=== PATIENT | female | born 2005 | race Hispanic/Latino ===

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

== ENCOUNTER 2025-02-07 11:36 | Emergency (ER) | payer BC, MEDICAID ==
[~2025-02-07] VITALS: Ht 162.6 cm; Wt 56.7 kg
[~2025-02-07 11:36] MED LIST: DOCU-116 PO; IBUP-2077 PO; PREN-154 PO
--- NOTE | 2025-02-07 11:57 | NUR ---
PENDING TEST RESULTS FOR CT EXAM.
[2025-02-07] MEDS: ondanSETRON 4MG INJ IVP ONE (12:41)
[2025-02-07] MEDS: PANTOPrazole 40 MG/VIAL IVP ONE (12:41)
[2025-02-07] MEDS: LACTATED RINGERS 1000ML 1,000 ML IV ONE (12:42)
[2025-02-07 13:09] LABS: BASOPHILS # (AUTO) 0.03 K/uL (0.00-0.20); BASOPHILS % (AUTO) 0.3 % (0.0-5.0); EOSINOPHILS # (AUTO) 0.03 K/uL (0.00-0.70); EOSINOPHILS % (AUTO) 0.3 % (0.0-8.0); HEMATOCRIT 45.8 % (36-48); IMMATURE GRANULOCYTE ABSOLUTE 0.03 K/uL (0-1); LYMPHOCYTES # (AUTO) 1.9 K/uL (1.0-4.8); LYMPHOCYTES % (AUTO) 17.6 % (21.0-51.0); MEAN CORPUSCULAR HEMOGLOBIN 29.8 pg (27.0-33.0); MEAN CORPUSCULAR HGB CONC 32.8 g/dL (32.0-36.0); MEAN CORPUSCULAR VOLUME 90.9 fL (80-100); MONOCYTES # (AUTO) 0.6 K/uL (0.1-1.0); MONOCYTES % (AUTO) 5.6 % (3.0-13.0); NEUTROPHILS # (AUTO) 8.2 K/uL (1.8-7.7); NEUTROPHILS % (AUTO) 75.9 % (40.0-77.0); PLATELET COUNT (AUTO) 373 K/uL (130-400); RED BLOOD CELL COUNT(AUTO) 5.04 MIL/uL (4.00-5.50); RED CELL DISTRIBUTION WIDTH 13.2 % (11.0-15.5); WHITE BLOOD COUNT (AUTO) 10.8 K/uL (4.8-10.8)
[2025-02-07 13:15] LABS: CREATININE 0.4 mg/dL (0.5-1.0); POTASSIUM 3.8 mmol/L (3.5-5.1)
[2025-02-07 13:34] LABS: ALBUMIN 3.8 g/dL (3.5-5.0); BILIRUBIN,TOTAL 1.2 mg/dL (0.2-1.0); TOTAL PROTEIN, SERUM 7.9 g/dL (6.0-8.3)
[2025-02-07 13:58] LABS: APPEARANCE,URINE CLEAR (CLEAR); BILIRUBIN,URINE NEGATIVE (NEGATIVE); COLOR,URINE YELLOW (YELLOW); GLUCOSE, URINE (UA) NEGATIVE (NEGATIVE); KETONES,URINE NEGATIVE (NEGATIVE); LEUKOCYTE ESTERASE ,URINE NEGATIVE Leu/uL (NEGATIVE); NITRATE,URINE NEGATIVE (NEGATIVE); OCCULT BLOOD,URINE NEGATIVE (NEGATIVE); PH,URINE 5.5 (5.0-8.0); PROTEIN,URINE 20 mg/dL (NEGATIVE); UROBILINOGEN,URINE 0.2 mg/dL (0.2-1.0)
[2025-02-07 14:00] LABS: ADD UA MICROSCOPIC YES
[2025-02-07 14:02] LABS: HCG,QUALITATIVE URINE NEGATIVE (NEGATIVE)
[2025-02-07 14:07] LABS: MUCUS,URINE RARE LPF (None Seen); RBC,URINE 0-1 /HPF (0-1); SQUAMOUS EPITHELIAL CELL,UR RARE /HPF (0-2); WBC,URINE 0-1 /HPF (0-1)
--- NOTE | 2025-02-07 14:17 | HMCIMG ---
Exam Type: CT ABDOMEN/PELVIS W/O CONTRAST Clinical Information: ABD PAIN Comparison: None CT Dose Index (CTDI): 10.20 mGy Dose Length Product (DLP): 530.00 total mGy-cm PROTOCOL: Routine noncontrast helical scanning of the abdomen and pelvis was performed at 5mm collimation. Findings: No evidence of nephro or ureterolithiasis is found. No hydronephrosis or ureteral dilatation is seen. The lung bases are clear. The stomach is unremarkable except for the presence of a percutaneous gastrostomy catheter. It shows no wall thickening. No gross ulceration is seen. It is not overly distended. There are no surrounding inflammatory changes. No wall lesions are identified to suggest cancer. The spleen is unremarkable. It is not enlarged. The pancreas shows normal anatomy. It is not fatty replaced. It shows no lesions. The pancreatic duct is not dilated. The gallbladder is unremarkable. It shows no cholelithiasis. The gallbladder wall is normal in thickness. There is no pericholecystic fluid. The is no acute or chronic inflammation noted. The adrenal glands are unremarkable. There is no enlargement. No lesions are noted. The liver is unremarkable. It shows no focal masses. The appendix is unremarkable. It shows no evidence of inflammation. No appendicolith is seen. The small bowel is unremarkable. There is no evidence of dilatation to suggest obstruction. No evidence of adynamic ileus is seen. There is no small bowel wall thickening to suggest enteritis. Abundant fecal matter is noted throughout the colon consistent with constipation. The urinary bladder is unremarkable. There is no wall thickening to suggest tumor or inflammation. There are no intraluminal calculi. There are no diverticula. There is no evidence of chronic bladder outlet obstruction. There is no evidence of urinary bladder distention to suggest urinary retention. The other pelvic structures are unremarkable. The bony and vascular structures are unremarkable for the patient's age. IMPRESSION: Constipation This study was performed using dose reduction techniques to include automated exposure control and/or adjustment of the mA and/or kV according to patient size.
--- NOTE | 2025-02-07 14:22 | HMCIMG ---
Exam Type: CHEST 1VW Clinical Information: FEVER Comparison: None Findings: The lungs are clear of infiltrates. The heart is normal in size. The bony and soft tissue structures of the chest are unremarkable. Impression: Clear lungs.
--- NOTE | 2025-02-07 14:37 | ERN ---
General Chief Complaint: Nausea,Vomiting,Diarrhea Stated Complaint: N/V W/PEG Time Seen by MD: 11:39 Source: patient, family, EMS History of Present Illness Initial Comments PATIENT IS A 19-YEAR-OLD FEMALE COMING IN TO BE EVALUATED FOR NAUSEA AND VOMIT ING DIARRHEA. PER HAS NOT REMEMBER PATIENT HAS A EXTENSIVE HISTORY OF REPEATED ABDOMINAL PAIN. PER FAMILY MEMBERS PATIENT HAS A POSSIBLE FLUID COLLECTION IN HER ABDOMEN. Allergies: Coded Allergies: No Allergy Information Available (Verified Allergy, Unknown, 08/25/22) NO KNOWN DRUG ALLERGIES Home Meds Reported Medications Docusate Sodium (Colace) 100 Mg Capsule, 100 MG PO BID, #60 CAP 08/25/22 Ibuprofen (Ibuprofen 800 mg Tab) 800 Mg Tab, 800 MG PO Q8H PRN for PAIN LEVEL 4 TO 6, #60 TAB 08/25/22 Vits #93/Iron Fum/FA ( Formula Tablet) 1 Each Tablet, 1 EACH PO DAILY, TAB 08/24/22 Past Medical History Past Medical History: Other Medical History Other: ANOXIC BRAIN INJURY, OVERDOSE, SMALL COCCYX ULCER PER MOM Past Surgical History: Other Surgical History Other: TRACH NOW CLOSED, PEG TUBE ROS Dictation UNABLE TO GET A COMPLETE ROS SECONDARY TO TBI Physical Exam Physical Exam Dictation VITAL SIGNS: REVIEWED. GENERAL APPEARANCE: ALERT, ORIENTED X3, NO ACUTE DISTRESS, OBESE. HEAD AND FACE: NON-TRAUMATIC. EYES: PERRL, PINK CONJUNCTIVAS, EYELID NO TRAUMA, ANTERIOR CHAMBER CLEAR. EARS: PINNAS INTACT AND NO SIGNS OF TRAUMA OR ERYTHEMA. EAR CANALS CLEAR AND NO DISCHARGE. TMS NO ERYTHEMA. NOSE: NO DISCHARGE, NO BLEEDING. OROPHARYNX: MOUTH NORMAL, TEETH NO CARIES, TONGUE PINK. PHARYNX CLEAR, NO ERYTHEMA. TONSILS NO EXUDATES, NO ABSCESSES NOTED. MUCOUS MEMBRANE MOIST. NECK: SUPPLE, NON-TENDER, NO THYROMEGALY, NO MASSES, NO JVD, NO BRUITS. BREAST: DEFERRED. CHEST: NO TENDERNESS, NO CREPITUS, NO PARADOXICAL MOVEMENT, NO RETRACTIONS. LUNGS: CLEAR, WELL-VENTILATED, SYMMETRIC, NO RALES, NO WHEEZING, NO RHONCHI, NO STRIDOR, GOOD BREATH SOUNDS BILATERALLY. HEART: REGULAR RATE, REGULAR RHYTHM, NO MURMUR, NO GALLOPS. VASCULAR: NO PERIPHERAL EDEMA. ABDOMEN: SOFT, POSITIVE BOWEL SOUNDS, NONDISTENDED, NO GUARDING, NONTENDER, NO REBOUND, NO MASSES NO HEPATOMEGALY, NO SPLENOMEGALY, NO BROWER'S SIGN, NO HERNIAS. RECTAL: DEFERRED. GENITAL: DEFERRED. NEUROLOGICAL: NORMAL SPEECH, GROSS MOTOR FUNCTION INTACT, GROSS SENSORY FUNCTION INTACT. MUSCULOSKELETAL: NECK NONTENDER, FULL RANGE OF MOTION, BACK NONTENDER, FULL RANGE OF MOTION. EXTREMITIES: NONTENDER, FULL RANGE OF MOTION. SKIN: COLOR PINK, DRY, NO TURGOR, NO RASH, NO LACERATIONS, NO ABRASIONS, NO CONTUSIONS. LYMPHATICS: DEFERRED. Results Laboratory and Microbiology Lab and Micro Result Laboratory Tests Test 02/07/25 12:51 02/07/25 13:50 White Blood Count 10.8 K/uL (4.8-10.8) Red Blood Count 5.04 MIL/uL (4.00-5.50) Hemoglobin 15.0 g/dL (12.0-16.0) Hematocrit 45.8 % (36-48) Mean Corpuscular Volume 90.9 fL (80-100) Mean Corpuscular Hemoglobin 29.8 pg (27.0-33.0) Mean Corpuscular Hemoglobin Concent 32.8 g/dL (32.0-36.0) Red Cell Distribution Width 13.2 % (11.0-15.5) Platelet Count 373 K/uL (130-400) Mean Platelet Volume 11.2 fL (7.5-10.5) H Immature Granulocyte % (Auto) 0.3 % (0-1) Neutrophils (%) (Auto) 75.9 % (40.0-77.0) Lymphocytes (%) (Auto) 17.6 % (21.0-51.0) L Monocytes (%) (Auto) 5.6 % (3.0-13.0) Eosinophils (%) (Auto) 0.3 % (0.0-8.0) Basophils (%) (Auto) 0.3 % (0.0-5.0) Neutrophils # (Auto) 8.2 K/uL (1.8-7.7) H Lymphocytes # (Auto) 1.9 K/uL (1.0-4.8) Monocytes # (Auto) 0.6 K/uL (0.1-1.0) Eosinophils # (Auto) 0.03 K/uL (0.00-0.70) Basophils # (Auto) 0.03 K/uL (0.00-0.20) Absolute Immature Granulocyte (auto 0.03 K/uL (0-1) Nucleated Red Blood Cells 0.0 % (0.0-0.19) Sodium Level 139 mmol/L (136-145) Potassium Level 3.8 mmol/L (3.5-5.1) Chloride Level 100 mmol/L (101-111) L Carbon Dioxide Level 30 mmol/L (21-32) Blood Urea Nitrogen 11 mg/dL (7-18) Creatinine 0.4 mg/dL (0.5-1.0) L Glomerular Filtration Rate Calc 146 mL/min (>90) Random Glucose 104 mg/dL (70-105) Total Calcium 9.8 mg/dL (8.5-10.1) Total Bilirubin 1.2 mg/dL (0.2-1.0) H Aspartate Amino Transf (AST/SGOT) 20 U/L (10-37) Alanine Aminotransferase (ALT/SGPT) 24 U/L (12-78) Alkaline Phosphatase 142 U/L (50-136) H Total Creatine Kinase 112 U/L (21-232) Troponin I High Sensitivity 6 ng/L (4-50) Total Protein 7.9 g/dL (6.0-8.3) Albumin 3.8 g/dL (3.5-5.0) Lipase 27 U/L (16-77) Human Chorionic Gonadotropin, Quant 0 mIU/mL (0-5) Urine Color YELLOW (YELLOW) Urine Appearance CLEAR (CLEAR) Urine pH 5.5 (5.0-8.0) Urine Specific [place] 1.030 (1.001-1.031) Urine Protein 20 mg/dL (NEGATIVE) H Urine Glucose (UA) NEGATIVE mg/dL (NEGATIVE) Urine Ketones NEGATIVE mg/dL (NEGATIVE) Urine Occult Blood NEGATIVE (NEGATIVE) Urine Nitrate NEGATIVE (NEGATIVE) Urine Bilirubin NEGATIVE mg/dL (NEGATIVE) Urine Urobilinogen 0.2 mg/dL (0.2-1.0) Urine Leukocyte Esterase NEGATIVE Poppy/uL Urine RBC 0-1 /HPF (0-1) Urine WBC 0-1 /HPF (0-1) Urine Squamous Epithelial Cells RARE /HPF (0-2) Urine Bacteria None /HPF (None Seen) Urine HCG, Qualitative NEGATIVE (NEGATIVE) Stool Occult Blood NEGATIVE (NEGATIVE) Labs Reviewed?: Yes MDM MDM: DIFFERENTIAL DIAGNOSIS: CONSTIPATION COMING UTI, RATIONALE: TESTS CONSIDERED AND ORDERED SECONDARY TO SHARED DECISION MAKING INCLUDE: PREVIOUS OUTSIDE RECORDS REVIEWED: OLD ER VISITS. PATIENT IS A 19-YEAR-OLD FEMALE COMING IN TO BE EVALUATED FOR ABDOMINAL DISCOMFORT. CT DISCLOSE CONSTIPATION. I RELATED MESSAGE TO HAND QUILTER PATIENT HAS A HISTORY OF TBI AND LIMITED COMPREHENSION. ED Course Orders Procedure Category Date Status Time Cbc With Differential LAB 02/07/25 Complete 11:42 Comprehensive LAB 02/07/25 Complete Metabolic Panel 11:42 Troponin I High LAB 02/07/25 Complete Sensitivity 11:42 Hcg,Quantitative LAB 02/07/25 Complete 11:42 ,Urine Test LAB 02/07/25 Complete 11:42 Urinalysis Profile LAB 02/07/25 Complete 11:42 Occult Blood Stool LAB 02/07/25 Complete Single Only 11:42 Lactated Ringers PHA 02/07/25 Complete 1000ml (Lactated 12:00 Ondansetron 4mg Inj PHA 02/07/25 Complete (Zofran 4mg Inj) 12:00 Pantoprazole 40mg Inj PHA 02/07/25 Complete (Protonix 40mg Inj 12:00 Creatine Kinase, Total LAB 02/07/25 Complete 11:42 Ct Abdomen/Pelvis W/O CT 02/07/25 Resulted Contrast 11:42 Chest 1vw RAD 02/07/25 Resulted 11:42 Lipase LAB 02/07/25 Complete 11:42 Current Medications Medications (Trade) Dose Ordered Sig/Marbin Route PRN Reason Start Time Stop Time Status Last Admin Dose Admin Lactated Ringer's 1,000 ml @ 0 mls/hr ONCE ONCE IV 02/07/25 12:00 02/07/25 12:01 DC 02/07/25 12:42 Ondansetron HCl (zoFRAN 4MG INJ) 4 mg ONCE ONCE IVP 02/07/25 12:00 02/07/25 12:01 DC 02/07/25 12:41 Pantoprazole Sodium (PROTonix 40MG INJ) 40 mg ONCE ONCE IVP 02/07/25 12:00 02/07/25 12:01 DC 02/07/25 12:41 Vital Signs Date Time Temp Pulse Resp B/P (MAP) Pulse Ox O2 Delivery O2 Flow Rate FiO2 02/07/25 14:12 98.1 80 20 126/94 98 Room Air* 0 21 02/07/25 12:50 99.0 98 22 130/80 98 Room Air* 0 02/07/25 11:50 99.3 100 22 130/80 98 Room Air* 0 02/07/25 11:40 98.6 103 18 117/74 98 Room Air DX & DISP Disposition: Discharge Departure Impression: Primary Impression: Constipation Additional Impression: History of traumatic brain injury Condition: Stable Additional Instructions: FOLLOW-UP WITH PRIMARY CARE PROVIDER IN 1 TO 2 DAYS. TAKE MEDICATIONS DIRECTED HERE IN THE EMERGENCY ROOM. OKAY TO CONTINUE HOME MEDICATIONS UNLESS OTHERWISE DISCUSSED DURING YOUR VISIT IN THE EMERGENCY ROOM TODAY. RETURN TO YOUR NEAREST EMERGENCY ROOM IF SYMPTOMS WORSEN OR IF THERE IS NO IMPROVEMENT. CALL 911 IF YOU NEED IMMEDIATE ASSISTANCE. TAKE TYLENOL [id number] NEEDED AND IF NO CONTRAINDICATIONS ARE PRESENT. INCREASE ORAL HYDRATION. A WOUND CULTURE OR URINE CULTURE WAS ORDERED HERE IN THE EMERGENCY ROOM DEPARTMENT PLEASE FOLLOW-UP WITH PRIMARY CARE PROVIDER AND ADVISE THEM TO GET REPEAT PORTS FROM OUR FACILITY. IF YOU HAD ANY RAFAL WRAP/SPLINTS THAT WERE APPLIED HERE, PLEASE DO NOT REMOVE THEM UNTIL YOU SEE YOUR PRIMARY CARE OR SPECIALTY. REFERRALS: Referrals: SELF,REFERRAL (PCP) Time of Disposition: 14:41 RONIT VALDEZ MD Feb 07, 2025 14:37
--- NOTE | 2025-02-07 16:54 | NUR ---
PT TRANSPORT HOME: PCS SENT AND I CALLED [facility] FOR PT TRANSPORT BACK TO HOME
[2025-02-07 17:50] VITALS: BP 127/67; PULSE 95; RESP 20; TEMP 98; O2SAT 98
== END 2025-02-07 18:30 | disposition home or self-care (01) ==
LOC: EDH 11:36
DX: K59.00 Constipation, unspecified (principal); R10.2 Pelvic and perineal pain; Z87.820 Personal history of traumatic brain injury
CPT/HCPCS: 99284; 74176; 96374; 71045; 96375; 82550; 84484; 80053; 84702; 83690; 85025; 82272; 81001; 81025; 36415; J7120; J2405; J2470; 82270